=== PATIENT | male | born 1955 | race Caucasian/White ===

== ENCOUNTER 2018-07-19 08:53 | Day surgery (SDC) | payer BC, OTHER ==
[2018-07-19] MEDS ORDERED: NS 0.9% VIAL 10 ML ONE (09:17)
[2018-07-19] MEDS ORDERED: DUOVISC 1 KIT OPTH ONE (09:18)
[2018-07-19] MEDS ORDERED: EPINEPHRINE/PF 1 MG/ML AMP ONE (09:18)
[2018-07-19] MEDS ORDERED: BALANCED SALT IRRIG PLAIN 500 ML BTL IRR ONE (09:18)
[2018-07-19] MEDS ORDERED: MOXIFLOXACIN HCL 10 DROPS/ML **OR USE OPTH ONE (09:18)
[2018-07-19] MEDS ORDERED: NA CHLORIDE 0.9% 500 ML ONE (09:27)
[2018-07-19] MEDS ORDERED: CYCLOPENTOLATE 1% OPTH 2 ML ONE (09:27)
[2018-07-19] MEDS ORDERED: PHENYLEPHRINE 10% OPTH 5ML ONE (09:27)
[2018-07-19] MEDS ORDERED: PHENYLEPHRINE 10% OPTH 5ML OPTH ONE ×2 (09:30→09:35)
[2018-07-19] MEDS ORDERED: CYCLOPENTOLATE 1% OPTH 2 ML OPTH ONE ×2 (09:30→09:35)
[2018-07-19] MEDS: TETRACAINE HCL 0.5% 2ML OPTH ONE ×2 (10:18→10:46)
[2018-07-19] MEDS: BUPIVACAINE 0.25% PF 10 ML VIAL ONE ×2 (10:19→10:48)
[2018-07-19] MEDS: LIDOCAINE 2% MPF 5 ML VIAL ONE ×2 (10:19→10:48)
[2018-07-19] MEDS ORDERED: PROPOFOL 200 MG/20 ML VIAL IV ONE (10:44)
[2018-07-19] MEDS ORDERED: LIDOCAINE 2% MPF 5 ML VIAL ONE (10:44)
--- NOTE | 2018-07-19 11:29 | P.BOP ---
Preoperative diagnosis: Nuclear sclerotic and posterior subcapsular cataract OS Postoperative diagnosis: Same Primary procedure: Phacoemulsification with IOL OS Estimated blood loss: Non Anesthesia: Local (Subtenon's infusion with anesthesia for cataract surgery) Complications: None Implants: SN60WF +22.5 Transferred to: Other (Day surgery) Condition: Good
--- NOTE | 2018-07-19 22:30 | OP ---
Date of Procedure: 07/19/2018 Surgeon: Gloria Tineo MD Anesthesiologist: Kathy Sevilla C.R.N.A. and Javy Rush M.D. Preoperative Diagnosis: Nuclear sclerotic and posterior subcapsular cataract, OS (left eye). Operation Performed: Phacoemulsification with intraocular lens implant, left eye. Anesthesia: Per cataract surgery. Complications: None. Description Of Procedure: In day surgery, the patient was prepped with Betadine and draped. A conju nctival incision was made in the inferior nasal quadrant with Brendan scissors. A sub-Tenon block c onsisting of a 1:1 mixture of 2% Xylocaine and 0.25% bupivacaine was placed through the conjunctival incision with a blunt cannula. A Honan balloon was placed over the eye and the patient was transferr ed to the operating room. In the operating room, the patient was prepped and draped in the usual sterile fashion for ophthalmic surgery. A lid speculum was placed in the left eye. Two paracentesis sites were made superiorly an d inferiorly in the limbal cornea. Viscoat was placed in the anterior chamber and a crescent blade w as used to make a corneal groove and tunnel, and a keratome was used to enter the anterior chamber. Provisc was placed in the anterior chamber and a 360-degree capsulotomy was performed with a cystitom e. The lens was hydrodissected with BSS and rotated freely. The lens was removed with a stop and ch op technique. A 7.62 phaco CDE was used to remove the lens. Residual cortex was removed with the ir rigation and aspiration. Provisc was placed in the capsular bag. A SN60WF +22.5 lens was placed in the capsular bag without complications. Irrigation and aspiration were used to remove residual visco elastic. The paracentesis sites were hydrated with BSS. The wound and paracentesis sites were inspe cted and found to be watertight. Vigamox 0.07 cc was placed intracamerally at the end of the procedu re. The eye was irrigated with balanced salt solution. The eye was patched with a soft cotton patch and George metal shield. The patient was returned to day surgery in good condition. Comments: Trace residual PSC remained at the end of surgery. Discharge Instructions: Mr. Mathur is discharged to home in good condition and is to follow up with Taz Tineo in the morning. LEVY/SILVINO Voice ID: [id number] Report ID: [id number]
== END 2018-07-19 12:00 | disposition home or self-care (01) ==
LOC: OR 08:53
PROVIDERS: ATTEND Ophthalmology Retina Specialist
PROC: 08RK3JZ Replacement of Left Lens with Synthetic Substitute, Percutaneous Approach (ICD-10-PCS; principal; 2018-07-19 10:00)
DX: H25.12 Age-related nuclear cataract, left eye (principal); H25.042 Posterior subcapsular polar age-related cataract, left eye; E11.9 Type 2 diabetes mellitus without complications; I10 Essential (primary) hypertension; E78.5 Hyperlipidemia, unspecified; M19.90 Unspecified osteoarthritis, unspecified site; Z82.49 Family history of ischemic heart disease and other diseases of the circulatory system
CPT/HCPCS: 82962; J0171; J2704